=== PATIENT | female | born 1985 | race Caucasian/White ===

== ENCOUNTER 2017-01-06 11:27 | Emergency (ER) | payer BC, MEDICAID, OTHER ==
[~2017-01-06] VITALS: Ht 157.5 cm; Wt 99.0 kg
[~2017-01-06 11:27] MED LIST: ACET250T3 PO; ANTI25TA2 PO; CITA20 PO; CLON1 PO; CYCL1PAK PO; GABA100C4 PO; HYDR-3533 PO; MOXI400T4 PO; NADO20TA PO; ZOFR4TAB3 SL
[2017-01-06 11:28] VITALS: BP 126/87; PULSE 82; RESP 14; TEMP 98; O2SAT 99
--- NOTE | 2017-01-06 11:37 | PD ---
Physical Exam Time Seen by Provider: 11:35 Narrative 31 y/o female presents for evaluation of back pain, pressure-type headache, blurred vision. Hx of pseudotumor cerebri. On diamox. Vital signs reviewed. Seen at triage desk. Awaiting bed placement. Data Data Last Documented VS Vital Signs Date Time Temp Pulse Resp B/P Pulse Ox O2 Delivery O2 Flow Rate FiO2 01/06/17 11:28 98.0 82 14 126/87 99 MDM Medical Record Reviewed: Yes Supervised Visit with CHIDI: No Donald Segovia January 06, 2017 11:37
[2017-01-06 11:54] VITALS: BP 129/72; PULSE 79; RESP 16; O2SAT 98
[2017-01-06] MEDS ORDERED: ORPHENADRINE INJ 60 MG/2 ML AMP IM ONE (12:00)
[2017-01-06] MEDS ORDERED: KETOROLAC TROMETHAMINE 60 MG/2 ML (IM) VIAL IM ONE (12:00)
[2017-01-06] MEDS ORDERED: CLON0.5T PO (12:03)
[2017-01-06] MEDS ORDERED: ACETA500 PO (12:03)
[2017-01-06] MEDS ORDERED: GABA300C5 PO (12:03)
[2017-01-06] MEDS ORDERED: CLON1TAB PO (12:03)
[2017-01-06] MEDS ORDERED: LAMO100T PO (12:03)
--- NOTE | 2017-01-06 12:22 | PD ---
HPI Chief Complaint: Headache Time Seen by Provider: 11:50 Travel History International Travel<30 days: No Contact w/Intl Traveler<30days: No Traveled to known affect area: No History of Present Illness HPI Patient is a 31-year-old female presenting to the emergency department for evaluation of a headache. Patient states her headache is been ongoing for 4 days, she has not taken any medication for her headache, she has had the same headache historically. She states it happens every 1-2 weeks lasting for 3-4 days and resolves on its own. On her headache occurs she rests, applies ice packs. She also presents with low back pain that started after spending the day in bed Wednesday due to the headache, the pain is in her low back more so on the right than the left. She denies any weakness, bladder or bowel incontinence , saddle paresthesia. Patient has a history of scoliosis and spina bifida and reports that she does have back pain at times. She denies any dysuria. Patient has been followed by a neurologist, Dr. Tolentino in [place] however her insurance has changed and has not established care with a new one yet. Additionally patient has a history of ulcer headaches, migraine headaches, bipolar disorder, pseudotumor cerebri, idiopathic intracranial hypertension. Patient reports compliance with Diamox. He denies any nausea, vomiting, fever, chills, gait abnormality, dizziness, photophobia, visual changes. PFSH Past Medical History Arthritis: No Asthma: Yes ( A CHILD) Anxiety: Yes Depression: Yes Cancer: No Cardiovascular Problems: No High Cholesterol: No Cerebrovascular Accident: No Diabetes: No Diverticulitis: Yes Endocrine: No Gastrointestinal Disorders: Yes (IBS) GERD: Yes Glaucoma: Yes Genitourinary: Yes Headaches: Yes (cluster and migraine) Hepatitis: No Hiatal Hernia: No Medical other: Yes (intracranial hypertension) Musculoskeletal: Yes (SCOLIOSIS, SPINA BIFIDA, SPONDOLYTHESIS) Neurologic: Yes (MIGRAINES, DOUBLE VISION, SPOTS, GHOST VISION) Reproductive: No Migraines: Yes Seizures: No Thyroid Disease: No Ulcer: No Influenza Vaccination: Yes ?: Not LMP: SEP 2016 (IUD) Menopausal: No : 2 Para: 2 Past Surgical History Surgical History: No Previous Surgery AICD: No Joint Replacement: No Pacemaker: No Other Surgery: No Social History Alcohol Use: No Tobacco Use: Yes (3/ ppd) Substance Use: Yes (MARIJUANA OCCASIONALLY) Allergies-Medications (Allergen,Severity, Reaction): Coded Allergies: Benadryl (Verified Allergy, Severe, PANIC ATTACK, 01/06/17) IV BENADRYL GIVES SEVERE PANIC ATTACK. Topamax (Verified Allergy, Severe, Confusion, 01/06/17) memory loss Tetracycline (Verified Adverse Reaction, Intermediate, CEREBRAL PSEUDOTUMOR-STATES MAKES WORSE, 01/06/17) Reported Meds & Prescriptions Reported Meds & Active Scripts Active Reported Gabapentin 300 Mg Cap 300 Mg PO BID Lamotrigine 100 Mg Tab 100 Mg PO DAILY Clonazepam 1 Mg Tab 1 Mg PO HS Clonazepam 0.5 Mg Tab 0.5 Mg PO DAILY Diamox Sequels ER 12 HR (Acetazolamide) 500 Mg Cap 1,000 Mg PO Q12HR Review of Systems Except as stated in HPI: all other systems reviewed are Neg General / Constitutional: No: Fever, Chills Eyes: No: Visual changes HENT: Positive: Headaches, No: Vertigo, Lightheadedness, Neck Pain Cardiovascular: No: Chest Pain or Discomfort Respiratory: No: Shortness of Breath Gastrointestinal: Positive: Abdominal Pain (occasional, none currently), No: Nausea, Vomiting, Diarrhea Genitourinary: No: Dysuria Musculoskeletal: Positive: Myalgias, Cramping, Pain Neurologic: No: Weakness, Dizziness, Syncope, Focal Abnormalities, Change in Mentation, Slurred Speech Physical Exam Narrative GENERAL: Overweight, well-developed, alert female. Resting comfortably in no acute distress. SKIN: Focused skin assessment warm/dry. HEAD: Atraumatic. Normocephalic. EYES: Pupils equal and round. No scleral icterus. No injection or drainage. ENT: No nasal bleeding or discharge. Mucous membranes pink and moist. NECK: Trachea midline. No JVD. CARDIOVASCULAR: Regular rate and rhythm. No murmur appreciated. RESPIRATORY: No accessory muscle use. Clear to auscultation. Breath sounds equal bilaterally. GASTROINTESTINAL: Abdomen soft, non-tender, nondistended. Hepatic and splenic margins not palpable. MUSCULOSKELETAL: No obvious deformities. No clubbing. No cyanosis. No edema. NEUROLOGICAL: Awake and alert. No obvious cranial nerve deficits. Motor grossly within normal limits. Normal speech. PSYCHIATRIC: Appropriate mood and affect; insight and judgment normal. Data Data Last Documented VS Vital Signs Date Time Temp Pulse Resp B/P Pulse Ox O2 Delivery O2 Flow Rate FiO2 01/06/17 11:59 98 Nasal Cannula 4 01/06/17 11:54 79 16 129/72 01/06/17 11:28 98.0 Orders Ketorolac Inj (Toradol Inj) (01/06/17 12:00) Orphenadrine Inj (Norflex Inj) (01/06/17 12:00) Oxygen Administration (01/06/17 11:57) MDM Medical Decision Making Medical Screen Exam Complete: Yes Emergency Medical Condition: Yes Medical Record Reviewed: Yes Interpretation(s) Vital Signs Date Time Temp Pulse Resp B/P Pulse Ox O2 Delivery O2 Flow Rate FiO2 01/06/17 11:59 98 Nasal Cannula 4 01/06/17 11:54 79 16 129/72 98 Room Air 01/06/17 11:28 98.0 82 14 126/87 99 Differential Diagnosis Cluster headache versus migraine headache versus cranial hypertension versus sinusitis versus lumbar strain versus lumbar spasm versus discogenic pain versus other Narrative Course Patient is a 31-year-old female that presented to the emergency department for Evaluation of a headache, low back pain. She has a history of the same headaches, her presentation today is consistent with her prior episodes. Patient initially denied any visual changes however upon evaluation by my attending physician she stated that she had blurry vision on Wednesday. Patient does have a history of pseudotumor cerebri and idiopathic intracranial hypertension. My attending physician spoke with Dr. Julio Raygoza, patient will be sent to her office tomorrow for evaluation. Patient was advised that if there are any abnormal findings on that exam that she is to return to emergency department immediately. Additionally patient was advised to follow- up with her primary doctor as well as a neurologist. She will be given the number of the neurologist on staff here. Patient verbalized understanding of these discharge instructions. Patient is stable for discharge. Diagnosis Primary Impression: Migraine Qualified Code: G43.909 - Migraine without status migrainosus, not intractable , unspecified migraine type Additional Impression: Strain of lumbar paraspinal muscle Qualified Code: S39.012A - Strain of lumbar paraspinal muscle, initial encounter Referrals: Rosemarie Raygoza MD 1 week CALL FOR [facility] Patient Instructions: General Instructions Departure Forms: Tests/Procedures, Work Release Enter return to work date: January 08, 2017 Additional Instructions: Follow-up with Dr. Rosemarie Raygoza tomorrow, if there are any abnormal findings on exam your to return to the emergency department immediately Follow-up with your primary care provider at the [facility] Follow-up with a neurologist. Take medications as directed, apply warm moist heat to the affected area, continue range of motion exercises, avoid bed rest Med/Other Pt SpecificInfo: Prescription(s) given Scripts Cyclobenzaprine (Flexeril)10 Mg Tab10 Mg PO TID PRN (MUSCLE SPASM) 7 Days Ref 0 Prov:Amy Poole 01/06/17 Ibuprofen 800 Mg Cga118 Mg PO Q8H PRN (Pain/Inflammation) 7 Days Ref 0 Prov:Amy Poole 01/06/17 Disposition: 01 DISCHARGE HOME Condition: Stable Amy Poole January 06, 2017 12:22
[2017-01-06] MEDS ORDERED: CYCL1TAB29 PO (13:35)
[2017-01-06] MEDS ORDERED: IBUP800T23 PO (13:35)
== END 2017-01-06 14:18 | disposition home or self-care (01) ==
LOC: NEPD 11:27
DX: G43.909 Migraine, unspecified, not intractable, without status migrainosus (principal); S39.012A Strain of muscle, fascia and tendon of lower back, initial encounter; F17.200 Nicotine dependence, unspecified, uncomplicated; Z87.39 Personal history of other diseases of the musculoskeletal system and connective tissue; Z86.59 Personal history of other mental and behavioral disorders; Z86.69 Personal history of other diseases of the nervous system and sense organs; Z87.19 Personal history of other diseases of the digestive system; X58.XXXA Exposure to other specified factors, initial encounter
CPT/HCPCS: 96372; 99283; J1885; J2360

== ENCOUNTER 2017-04-29 10:39 | Emergency (ER) | payer OTHER ==
[~2017-04-29 10:39] MED LIST changes: -ACET250T3 PO; +ACETA500 PO; -ANTI25TA2 PO; -CITA20 PO; +CLON0.5T PO; -CLON1 PO; +CLON1TAB PO; -CYCL1PAK PO; +CYCL1TAB29 PO; -GABA100C4 PO; +GABA300C5 PO; -HYDR-3533 PO; +IBUP800T23 PO; +LAMO100T PO; -MOXI400T4 PO; -NADO20TA PO; -ZOFR4TAB3 SL
[2017-04-29 10:40] VITALS: BP 135/86; PULSE 15; PULSE 85; RESP 15; TEMP 98.2; O2SAT 99
[2017-04-29] MEDS ORDERED: SODIUM CHLORIDE 0.9% FLUSH 10 ML FLUSH IVF PRN (12:45)
[2017-04-29] MEDS ORDERED: PROCHLORPERAZINE INJ 10 MG/2 ML VIAL IVP ONE (12:45)
[2017-04-29] MEDS ORDERED: ACETAMINOPHEN 325 MG TAB PO ONE (12:45)
[2017-04-29 12:52] VITALS: BP 126/78; PULSE 60; RESP 18; O2SAT 100
--- NOTE | 2017-04-29 12:58 | PD ---
HPI Chief Complaint: Headache Time Seen by Provider: 12:45 Travel History International Travel<30 days: No Contact w/Intl Traveler<30days: No Traveled to known affect area: No History of Present Illness HPI The patient's 31 years old. She arrives with a headache for 5 days. Onset gradual. She has history of pseudotumor cerebri and states that it feels like a pseudotumor cerebri headache. She has been compliant with Diamox. No fever. She reports nausea and vomiting. No photophobia reported. She reports no head CT for over 2 years. PFSH Past Medical History Arthritis: No Asthma: Yes ( A CHILD) Anxiety: Yes Depression: Yes Cancer: No Cardiovascular Problems: No High Cholesterol: No Cerebrovascular Accident: No Diabetes: No Diverticulitis: Yes Endocrine: No Gastrointestinal Disorders: Yes (IBS) GERD: Yes Glaucoma: Yes Genitourinary: Yes Headaches: Yes (cluster and migraine) Hepatitis: No Hiatal Hernia: No Hypertension: Yes (INTERCRANIAL HYPERTENSION) Musculoskeletal: Yes (SCOLIOSIS, SPINA BIFIDA, SPONDOLYTHESIS) Neurologic: Yes (MIGRAINES, DOUBLE VISION, SPOTS, GHOST VISION) Psychiatric: Yes (ANXIETY (GENERALIZED)) Reproductive: No Respiratory: Yes Migraines: Yes Seizures: No Thyroid Disease: No Ulcer: No Tetanus Vaccination: > 5 Years Influenza Vaccination: Yes ?: Unknown Menopausal: No : 2 Para: 2 Past Surgical History Surgical History: No Previous Surgery AICD: No Joint Replacement: No Pacemaker: No Other Surgery: No Social History Alcohol Use: No Tobacco Use: Yes (3/4 ppd) Substance Use: Yes (MARIJUANA OCCASIONALLY) Allergies-Medications (Allergen,Severity, Reaction): Coded Allergies: diphenhydramine (Unverified Allergy, Severe, PANIC ATTACK, 04/29/17) IV BENADRYL GIVES SEVERE PANIC ATTACK. topiramate (Unverified Allergy, Severe, Confusion, 04/29/17) memory loss doxycycline (Unverified Adverse Reaction, Intermediate, CEREBRAL PSEUDOTUMOR-STATES MAKES WORSE, 04/29/17) minocycline (Unverified Adverse Reaction, Intermediate, CEREBRAL PSEUDOTUMOR-STATES MAKES WORSE, 04/29/17) tigecycline (Unverified Adverse Reaction, Intermediate, CEREBRAL PSEUDOTUMOR-STATES MAKES WORSE, 04/29/17) Reported Meds & Prescriptions Reported Meds & Active Scripts Active Phenergan (Promethazine HCl) 25 Mg Tablet 25 Mg PO Q6H PRN Flexeril (Cyclobenzaprine HCl) 10 Mg Tab 10 Mg PO TID PRN 7 Days Ibuprofen 800 Mg Tab 800 Mg PO Q8H PRN 7 Days Reported Gabapentin 300 Mg Cap 300 Mg PO BID Lamotrigine 100 Mg Tab 100 Mg PO DAILY Clonazepam 1 Mg Tab 1 Mg PO HS Clonazepam 0.5 Mg Tab 0.5 Mg PO DAILY Diamox Sequels ER 12 HR (Acetazolamide) 500 Mg Cap 1,000 Mg PO Q12HR Review of Systems Except as stated in HPI: all other systems reviewed are Neg General / Constitutional: No: Fever Physical Exam Narrative GENERAL: 31-year-old female well-nourished well-developed. SKIN: Warm and dry. HEAD: Atraumatic. Normocephalic. EYES: Pupils equal and round. No scleral icterus. No injection or drainage. ENT: No nasal bleeding or discharge. Mucous membranes pink and moist. NECK: Trachea midline. No JVD. Normal range of motion. CARDIOVASCULAR: Regular rate and rhythm. RESPIRATORY: No accessory muscle use. Clear to auscultation. Breath sounds equal bilaterally. GASTROINTESTINAL: Abdomen soft, non-tender, nondistended. Hepatic and splenic margins not palpable. MUSCULOSKELETAL: Extremities without clubbing, cyanosis, or edema. No obvious deformities. NEUROLOGICAL: Awake and alert. No obvious cranial nerve deficits. Motor grossly within normal limits. Five out of 5 muscle strength in the arms and legs. Normal speech. PSYCHIATRIC: Appropriate mood and affect; insight and judgment normal. Data Data Last Documented VS Vital Signs Date Time Temp Pulse Resp B/P (MAP) Pulse Ox O2 Delivery O2 Flow Rate FiO2 04/29/17 12:52 18 100 Room Air 04/29/17 12:52 60 04/29/17 10:40 98.2 Vital signs reviewed, blood pressure 126/78 Orders Orders Complete Blood Count With Diff (04/29/17 12:45) Basic Metabolic Panel (Bmp) (04/29/17 12:45) Ct Brain W/O Iv Contrast(Rout) (04/29/17 12:45) Ecg Monitoring (04/29/17 12:45) Iv Access Insert/Monitor (04/29/17 12:45) Oximetry (04/29/17 12:45) Sodium Chloride 0.9% Flush (Ns Flush) (04/29/17 12:45) Acetaminophen (Tylenol) (04/29/17 12:45) Prochlorperazine Inj (Compazine Inj) (04/29/17 12:45) Ed Urine Pregnancytest Poc (04/29/17 12:45) Act Partial Throm Time (Ptt) (04/29/17 12:34) Prothrombin Time / Inr (Pt) (04/29/17 12:34) Promethazine (Phenergan) (04/29/17 15:45) Labs Laboratory Tests Test 04/29/17 12:34 04/29/17 12:40 04/29/17 12:45 Prothrombin Time 10.9 SEC Prothromb Time International Ratio 1.0 RATIO Activated Partial Thromboplast Time 28.9 SEC Blood Urea Nitrogen 8 MG/DL Creatinine 0.65 MG/DL Random Glucose 88 MG/DL Calcium Level 8.6 MG/DL Sodium Level 140 MEQ/L Potassium Level 4.2 MEQ/L Chloride Level 114 MEQ/L Carbon Dioxide Level 17.6 MEQ/L Anion Gap 8 MEQ/L Estimat Glomerular Filtration Rate 108 ML/MIN White Blood Count 7.2 TH/MM3 Red Blood Count 4.81 MIL/MM3 Hemoglobin 15.6 GM/DL Hematocrit 45.9 % Mean Corpuscular Volume 95.4 FL Mean Corpuscular Hemoglobin 32.5 PG Mean Corpuscular Hemoglobin Concent 34.0 % Red Cell Distribution Width 14.5 % Platelet Count 220 TH/MM3 Mean Platelet Volume 9.5 FL Neutrophils (%) (Auto) 58.6 % Lymphocytes (%) (Auto) 33.7 % Monocytes (%) (Auto) 6.0 % Eosinophils (%) (Auto) 1.0 % Basophils (%) (Auto) 0.7 % Neutrophils # (Auto) 4.2 TH/MM3 Lymphocytes # (Auto) 2.4 TH/MM3 Monocytes # (Auto) 0.4 TH/MM3 Eosinophils # (Auto) 0.1 TH/MM3 Basophils # (Auto) 0.0 TH/MM3 CBC Comment DIFF FINAL Differential Comment MDM Medical Decision Making Medical Screen Exam Complete: Yes Emergency Medical Condition: Yes Differential Diagnosis Pseudotumor cerebri, migraine, cluster headache, sinus disease of the ethmoid frontal or maxillary sinuses, meningitis, intracranial hemorrhage Narrative Course CBC & BMP Diagram 04/29/17 12:40 Calcium Level 8.6 04/29/17 12:45 CT head: No acute intracranial injury The patient is resting comfortably and feels better, is alert and in no distress. The patients results and examination findings were discussed. The repeat examination is unremarkable and benign. The history, exam, diagnostic testing, and current condition do not suggest any significant pathology to warrant further testing, continued ED treatment, admission, or surgical evaluation at this point. The vital signs have been stable. The patient does not have uncontrollable pain, intractable vomiting, or other significant symptoms. The patient's condition is stable and appropriate for discharge. The patient will pursue further outpatient evaluation with a primary care physician or other designated or consulting physician as indicated in the discharge instructions. The patient expressed understanding and was agreeable with this plan. Diagnosis Primary Impression: Headache Qualified Codes: R51 - Headache Referrals: Neurologist Additional Instructions: You have a choice when it comes to health care, and we are glad that you chose [facility]. Hopefully, we have met your expectations on today's visit. You are welcome to return to [facility] at any time, as we are committed to meeting the health care needs of our community. Med/Other Pt SpecificInfo: Prescription(s) given Scripts Promethazine (Phenergan) 25 Mg Tablet 25 MG PO Q6H Y for NAUSEA OR VOMITING, #10 TAB 0 Refills Prov: Hector Lawton MD 04/29/17 Disposition: 01 DISCHARGE HOME Condition: Stable Hector Lawton MD Apr 29, 2017 12:58
[2017-04-29 13:21] LABS: AUTOMATED NEUTROPHIL # 4.2 TH/MM3 (1.8-7.7); BASOPHIL % 0.7 % (0.0-2.0); EOSINOPHIL # 0.1 TH/MM3 (0-0.4); HEMATOCRIT 45.9 % (35.0-46.0); HEMO FLAGS DIFF FINAL; LYMPH % 33.7 % (9.0-44.0); LYMPHOCYTE # 2.4 TH/MM3 (1.0-4.8); MEAN CELL VOLUME 95.4 FL (80.0-100.0); MEAN CORPUSCULAR HEMOGLOBIN 32.5 PG (27.0-34.0); NEUT % 58.6 % (16.0-70.0); PLATELET COUNT 220 TH/MM3 (150-450); RED BLOOD COUNT 4.81 MIL/MM3 (4.00-5.30); RED CELL DISTRIBUTION WIDTH 14.5 % (11.6-17.2); WHITE BLOOD COUNT 7.2 TH/MM3 (4.0-11.0)
[2017-04-29 13:27] LABS: APTT (PATIENT) 28.9 SEC (24.3-30.1); PROTHROMBIN TIME - PATIENT 10.9 SEC (9.8-11.6)
[2017-04-29 13:56] LABS: BICARBONATE 17.6 MEQ/L (21.0-32.0)
[2017-04-29 14:01] LABS: POTASSIUM 4.2 MEQ/L (3.5-5.1)
--- NOTE | 2017-04-29 15:16 | RADRPT ---
EXAM DATE/TIME: 04/29/2017 14:58 [facility] COMPARISON: CT BRAIN W/O CONTRAST, September 19, 2015, 10:28. INDICATIONS : Migraine since Wednesday RADIATION DOSE: 35.73 CTDIvol (mGy) MEDICAL HISTORY : None SURGICAL HISTORY : None. ENCOUNTER: Initial ACUITY: 4 - 6 days PAIN SCALE: 8/10 LOCATION: cranial TECHNIQUE: Multiple contiguous axial images were obtained of the head. Using automated exposure control and adj ustment of the mA and/or kV according to patient size, radiation dose was kept as low as reasonably a chievable to obtain optimal diagnostic quality images. DICOM format image data is available electro nically for review and comparison. FINDINGS: CEREBRUM: The ventricles are normal for age. No evidence of midline shift, mass lesion, hemorrhage or acute in farction. No extra-axial fluid collections are seen. POSTERIOR FOSSA: The cerebellum and brainstem are intact. The 4th ventricle is midline. The cerebellopontine angle i s unremarkable. EXTRACRANIAL: The visualized portion of the orbits is intact. SKULL: The calvaria is intact. No evidence of skull fracture. CONCLUSION: 1. No acute intracranial abnormality is identified. Hector Conley MD on April 29, 2017 at 15:14 Board Certified Radiologist. This report was verified electronically.
[2017-04-29] MEDS ORDERED: PROM25TA10 PO (15:38)
[2017-04-29] MEDS ORDERED: PROMETHAZINE HCL 25 MG TAB PO ONE (15:45)
[2017-04-29] MEDS ORDERED: diphenhydrAMINE HCL 50 MG/ML VIAL IV ONE (16:15)
== END 2017-04-29 16:08 | disposition home or self-care (01) ==
LOC: NEPD 10:39
DX: R51 Headache (principal); R11.2 Nausea with vomiting, unspecified; G93.2 Benign intracranial hypertension; K58.9 Irritable bowel syndrome, unspecified; M41.9 Scoliosis, unspecified; Q05.9 Spina bifida, unspecified; K21.9 Gastro-esophageal reflux disease without esophagitis; F41.9 Anxiety disorder, unspecified; H40.9 Unspecified glaucoma
CPT/HCPCS: 70450; 80048; 84703; 85025; 85610; 85730; 96374; 99285; J0780